=== PATIENT | female | born 2005 | race Caucasian/White ===

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

== ENCOUNTER 2025-02-16 09:37 | Emergency (ER) | payer MEDICAID ==
[~2025-02-16] VITALS: Ht 165.1 cm; Wt 71.0 kg
[~2025-02-16 09:37] MED LIST: NO HOME MEDS
[2025-02-16 09:40] VITALS: BP 125/79; PULSE 98; RESP 18; TEMP 98.6; O2SAT 98
--- NOTE | 2025-02-16 11:39 | Physician Documentation ---
History of Present Illness ~ Chief Complaint: Abscess Stated Complaint: RIB PAIN Time Seen by MD: 11:12 OK to notify your PCP?: Yes Primary Medical Doctor: Unknown Source: patient, family Mode of Arrival: POV Exam Limitations: no limitations HPI 19-year-old female with chief complaint painful left axilla which started three days ago. No pre arrival treatment. Has not ever had anything like this before. No precipitating injury or event. No fever, chills. Patient states the pain radiates to her rib area. Pain is worse with any direct pressure to the area. Tetanus Within 5 Years: Yes Medication Reconciliation Allergies: Coded Allergies: bee venom protein (honey bee) (Verified Allergy, Unknown, 02/16/25) kel (Verified Allergy, Unknown, 02/16/25) Miscellaneous Medications Home Med List (No Home Medications), (Reported) Past Medical History Past Medical History: No Pertinent History, Anxiety, Depression Past Surgical History: noncontributory Alcohol Use: Rarely Drug Use: marijuana Lives In: Home Review of Systems All Other Systems at this time: Reviewed and Negative Physical Exam Vital Signs: Temperature: 98.6, Source: Temporal, Heart Rate: 98, Respiratory Rate: 18, BP: 125/79, Pulse Oximetry: 98, Weight: 71.000 Oxygen Flow Rate: 0 Physical Exam General Appearance: Alert, WD/WN. NAD. HEENT: NCAT, PERRL, EOMI. Neck: Supple, trachea midline. Cardiovascular: RRR. No m/r/g. Lungs: Breathing unlabored Extremities: MOVING LEFT ARM NORMALLY HAS HER ARM ABOVE HER HEAD Skin: Warm/dry, normal color. LEFT AXILLA ERYTHEMATOUS AREA OF SKIN MEASURING 3-4CM IN SIZE, NO INDURATION, NO FLUCTUANCE, TTP. UNABLE TO TRULY ASSESS IF THERE IS AXILLARY LYMPHADENOPATHY WITH EVEN LIGHT PALPATION PATIENT JERKED A WAY DUE TO HER PAIN. Neurological: Alert and oriented x4, normal gait. Psychiatric: Affect congruent with mood. Progress Results/Orders Results/Orders Vital Signs 02/16/25 09:40 Temp 98.6 Pulse 98 Resp 18 B/P (MAP) 125/79 Pulse Ox 98 O2 Flow Rate 0 Medical Decision Making Differential Dx:Considerations: Include: Abscess, Bacteremia, Cellulitis, Erysipelas, Felon, Gas gangrene, Hidrademitis suppurativa, Impetigo, Lymphangitis, Osteromyelitis, Paronychia, Septicemia, Other Additional Comment THERE WAS NO INDURATION OR FLUCTUANCE NO PALPABLE POCKET FOR DRAINAGE Departure Time of Disposition: 11:38 Disposition: 01 HOME / SELF CARE / HOMELESS Impression: Primary Impression: Cellulitis Qualified Codes: L03.112 - Cellulitis of left axilla Condition: Stable Discharge Instructions: Cellulitis, Adult, [id number] Additional Instructions: ANTIBIOTIC PRESCRIBED RETURN IF INCREASING PAIN, FEVER, OR ANY OTHER CONCERNING SYMPTOMS Referrals: NO PRIMARY CARE PROVIDER (PCP) Prescriptions Ibuprofen (Ibuprofen) 800 Mg Tablet 1 TAB PO Q8H for pain for 10 Days, #30 TAB 0 Refills Prov: MARJAN WADE 02/16/25 Cephalexin*Monohydrate* (Keflex*) 500 Mg Capsule 1 CAP PO QID for 10 Days, #40 CAP Prov: MARJAN WADE 02/16/25 Education Educated: Patient Educated regarding: diagnosis, treatment, need for follow up Signature Scribe Signature: X Attestation: MARJAN WHALEN Feb 16, 2025 11:39
[2025-02-16] MEDS ORDERED: IBUP-1986 PO (11:40)
[2025-02-16] MEDS ORDERED: CEPH-585 PO (11:40)
[2025-02-16] MEDS: ibuprofen tablet 400 MG TABLET PO ONE (11:59)
== END 2025-02-16 12:03 | disposition home or self-care (01) ==
LOC: ER 09:38
DX: L03.112 Cellulitis of left axilla (principal); Z91.030 Bee allergy status
CPT/HCPCS: 99283